=== PATIENT | male | born 1960 ===

== ENCOUNTER 2020-10-08 20:59 | Emergency (ER) | payer MEDICAID ==
[~2020-10-08] VITALS: Ht 172.7 cm; Wt 85.0 kg
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
[2020-10-08] MEDS ORDERED: DIPHTHERIA-TETANUS ADULT 0.5ML IM-VACC ONE (22:30)
[2020-10-08] MEDS ORDERED: DIPH,PERTUSS(ACELL),TET VAC/PF 0.5 ML IM-VACC ONE (23:08)
--- NOTE | 2020-10-08 23:16 | NUR ---
GIVE TDAP VACCINE, PT RESTING ON GURNEY, DENIES NEEDS AT THIS TIME.
--- NOTE | 2020-10-08 23:30 | NUR ---
PT WOULD NOT WAKE UP ENOUGH TO BREATHALYZE. PT WOULD BLOW FOR 2 SECS AND THAT WOULD NOT REGISTERED ON THE MACHINE.
--- NOTE | 2020-10-09 01:16 | NUR ---
REPORT RECIEVED FROM TRINA WASSERMAN
--- NOTE | 2020-10-09 02:07 | NUR ---
PT ASLEEP IN BED, ALL NEEDS IN REACH, CALL LIGHT IN REACH, NAD AT THIS TIME, VSS
--- NOTE | 2020-10-09 02:16 | NUR ---
BREAK RN: PT SUPINE ON GURNEY RESTING COMFORTABLY. NADN, VSS. PT DENIES ANY NEEDS AT THIS TIME. CALL LIGHT AND PERSONAL BELONGINGS WITHIN REACH.
--- NOTE | 2020-10-09 02:53 | NUR ---
PT ASLEEP IN BED, THIS RN WOKE PT UP AND ASKED IF THIS RN COULD CLEAN HIS FACE FROM DRIED BLOOD, PT NODDED NO, PT NOT ABLE TO WALK AT THIS TIME, THIS RN TO RECHECK IN AN HOUR, VSS, ALL NEEDS IN REACH, CALL LIGHT IN REACH, NAD AT THIS TIME
--- NOTE | 2020-10-09 04:00 | NUR ---
PT ASLEEP IN BED, THIS RN WOKE PT UP TO SEE IF HE COULD WALK, PT WOKE UP AND SAT AT THE EDGE OF THE BED, PT TRIED TO STAND UP BUT STATED "I CANT, I CANT", THIS RN ASKED WHY AND PT STATED HIS RIGHT KNEE WAS IN PAIN, THIS RN ASKED IF PT AMBULATED WITH A WALKER OR CANE AND PT SAID NO BUT HE USUALLY WRAPS HIS KNEE BEFORE WALKING, THIS RN TO RETURN IN AN HOUR TO SEE IF PT CAN WALK, PT NAD AT THIS TIME, YARI
--- NOTE | 2020-10-09 05:15 | NUR ---
PT ASLEEP IN BED, ALL NEEDS IN REACH, CALL LIGHT IN REACH, NAD AT THIS TIME, PENDING XRAY READS FOR DISCHARGE
--- NOTE | 2020-10-09 06:06 | NUR ---
PT ASLEEP IN BED, ALL NEEDS IN REACH, CALL LIGHT IN REACH, NAD AT THIS TIME, VSS
[2020-10-09] MEDS ORDERED: SODIUM CHLORIDE 0.9% 1,000ML IVBOLUS ONE (07:00)
--- NOTE | 2020-10-09 07:01 | NUR ---
REPORT RECEIVED, CARE ASSUMED. PT LAYING ON GURNEY, NO ACUTE DISTRESS NOTED. DISCUSSED WITH DR GOODEN PT URINE BROWN. UA TO BE SENT AND LABS DRAWN. DISCUSSED WITH PT. PT VERBALIZED UNDERSTANDING. NO NEEDS EXPRESSED AT THIS TIME.
[2020-10-09 07:13] LABS: BASOPHILS % (AUTO) 1 % (0-1); EOSINOPHILS % (AUTO) 3 % (1-7); LYMPHOCYTES % (AUTO) 16 % (22-44); MEAN CORPUSCULAR HEMOGLOBIN 32.4 pg (27.5-34.5); MEAN CORPUSCULAR HGB CONC 34.5 g/dL (33.2-36.2); MEAN PLATELET VOLUME 7.8 fL (7.4-10.4); MONOCYTES % (AUTO) 10 % (2-9); NEUTROPHILS % (AUTO) 72 % (42-75); PLATELET COUNT 163 x10^3/uL (130-400); RED BLOOD COUNT 4.16 x10^6/uL (4.38-5.82)
[2020-10-09 07:25] LABS: ANION GAP 8 mmol/L (5-15); CALCIUM 8.2 mg/dL (8.5-10.1); CHLORIDE 104 mmol/L (98-107); CREATININE 0.66 mg/dL (0.7-1.3)
[2020-10-09 07:26] LABS: MICROSCOPIC INDICATED
[2020-10-09 07:27] LABS: CREATINE KINASE, TOTAL 364 U/L (39-308)
[2020-10-09 08:38] VITALS: BP 139/84
--- NOTE | 2020-10-09 08:39 | NUR ---
TASK RN NOTE: DC ORDERS RECEIVED. PT GIVEN DC INSTRUCTIONS, PT IS A&OX4, RESPS EVEN AND UNLABORED, SPEECH CLEAR. CIWA SCORE 0 AT TIME OF DC. PT GIVEN PO FLUIDS, TOLERATED WELL WITH NO S/SX ASPIRATION, NO N/V. PT AMBULATORY WITH STEADY GAIT, UNASSISTED AT DC. PT GIVEN [employer] VOUCHER FOR DC, [employer] CALLED. PIV DC'D WITH TIP INTACT. NO COMPLAINT AT TIME OF DC.
== END 2020-10-09 09:51 | disposition home or self-care (01) ==
LOC: ED 23:13 → EDIP 23:27 → UNDOADMIN 23:27 → ED 23:59
DX: S00.01XA Abrasion of scalp, initial encounter (principal); S09.90XA Unspecified injury of head, initial encounter; G92 Toxic encephalopathy; M25.561 Pain in right knee; F10.220 Alcohol dependence with intoxication, uncomplicated; Y90.0 Blood alcohol level of less than 20 mg/100 ml; Y04.0XXA Assault by unarmed brawl or fight, initial encounter; Y93.89 Activity, other specified; Y92.89 Other specified places as the place of occurrence of the external cause; Y99.8 Other external cause status
CPT/HCPCS: 36415; 70450; 70486; 71045; 73564; 80048; 80320; 81001; 82550; 85025; 87086; 90471; 90714; 96360; 99285; J7030; G0480